=== PATIENT | male | born 1990 | race Caucasian/White ===

== ENCOUNTER 2019-11-25 12:08 | Emergency (ER) | payer OTHER ==
[~2019-11-25] VITALS: Ht 172.7 cm; Wt 55.5 kg
--- NOTE | 2019-11-25 12:28 | NUR ---
pt presents to ED with c/o n/v/d and diffuse abd pain onset this am. pt a&o, resps even and unlabored. bp and spo2 monitors applied. call light in reach. warm blanket provided. CM Connelly at bedside.
[2019-11-25] MEDS ORDERED: SODIUM CHLORIDE FLUSH 10ML SYR IVF ONE (12:30)
[2019-11-25] MEDS ORDERED: ONDANSETRON 2MG/ML, 2ML IVPush ONE (12:30)
[2019-11-25] MEDS ORDERED: ONDANSETRON 2MG/ML, 2ML ONE (12:39)
--- NOTE | 2019-11-25 12:56 | NUR ---
Pt instructed to provide clean catch ua, pt unable to at this time d/t overwhelming nausea. pt is dry heaving. PIV placed, pt medicated per emar, IVF infusing rapidly. pt instructed to provide urine sample when able.
[2019-11-25] MEDS ORDERED: SODIUM CHLORIDE 0.9% 1,000 ML IV ONE (13:00)
[2019-11-25 13:06] LABS: BASOPHILS # (AUTO) 0.02 x10^3/uL (0-0.1); BASOPHILS % (AUTO) 1 % (0-1); EOSINOPHILS # (AUTO) 0.01 x10^3/uL (0-0.4); EOSINOPHILS % (AUTO) 0 % (1-7); LYMPHOCYTES # (AUTO) 0.46 x10^3/uL (1-3.4); LYMPHOCYTES % (AUTO) 11 % (22-44); MD NO; MEAN CORPUSCULAR HGB CONC 33.8 g/dL (33.2-36.2); MEAN CORPUSCULAR VOLUME 91.9 fL (81-97); MEAN PLATELET VOLUME 9.8 fL (7.4-10.4); MONOCYTES # (AUTO) 0.14 x10^3/uL (0.2-0.8); MONOCYTES % (AUTO) 3 % (2-9); NEUTROPHILS % (AUTO) 85 % (42-75); PLATELET COUNT 134 x10^3/uL (130-400); RED BLOOD COUNT 4.68 x10^6/uL (4.38-5.82); RED CELL DISTRIBUTION WIDTH 13.1 % (9.4-14.8)
--- NOTE | 2019-11-25 13:14 | NUR ---
pt reports nausea and pain has resolved. pt up to void at this time, gait steady.
[2019-11-25 13:16] LABS: ALANINE AMINOTRANSFERASE 35 U/L (12-78); ANION GAP 11 mmol/L (5-15); CALCIUM 7.9 mg/dL (8.5-10.1); CHLORIDE 109 mmol/L (98-107); CREATININE 0.93 mg/dL (0.7-1.3)
[2019-11-25 13:18] LABS: ALKALINE PHOSPHATASE 65 U/L (45-117); BILIRUBIN,TOTAL 1.1 mg/dL (0.2-1.0)
[2019-11-25 13:31] LABS: MICROSCOPIC NOT IND
[2019-11-25 13:33] LABS: CULTURE INDICATED? NO
--- NOTE | 2019-11-25 13:58 | NUR ---
pt resting on gurney, a&o, resps even and unlabored. nausea and pain resolved. father at bedside. pt and father updated with POC. pt states he has no hx adverse rxn to CT contrast. pt awaiting CT at this time.
[2019-11-25] MEDS ORDERED: LORA10CA PO (14:01)
--- NOTE | 2019-11-25 14:21 | NUR ---
pt hesitant to have CT scan performed. MD Connelly notified. spoke with patient and father who collectively decided to forgo CT. awaiting DC orders at this time.
[2019-11-25 14:45] VITALS: BP 113/70
== END 2019-11-25 14:47 ==
LOC: ED 14:41
DX: R10.84 Generalized abdominal pain (principal); R11.2 Nausea with vomiting, unspecified
CPT/HCPCS: 36415; 80053; 81003; 83690; 85025; 96361; 96374; 99283; J2405; J7030